=== PATIENT | male | born 1945 | race Hispanic/Latino ===

== ENCOUNTER 2019-03-31 12:21 | Day surgery (SDC) | payer MEDICARE ==
[2019-03-31 13:11] VITALS: BP 146/65; TEMP 98
== END 2019-03-31 13:12 | disposition home or self-care (01) ==
LOC: ONC/OP 12:21
PROVIDERS: ATTEND Internal Medicine Hematology & Oncology
DX: Z51.12 Encounter for antineoplastic immunotherapy (principal); C61 Malignant neoplasm of prostate; C79.51 Secondary malignant neoplasm of bone
CPT/HCPCS: 36415; 80053; 82248; 83615; 84100; 84550; 96372; J0897

== ENCOUNTER 2019-04-24 11:11 | Day surgery (SDC) | payer MEDICARE ==
[2019-04-24 13:06] VITALS: BP 167/76; TEMP 97.7
== END 2019-04-24 15:29 | disposition home or self-care (01) ==
LOC: ONC/OP 11:11
PROVIDERS: ATTEND Internal Medicine Hematology & Oncology
DX: Z51.12 Encounter for antineoplastic immunotherapy (principal); C61 Malignant neoplasm of prostate; C79.51 Secondary malignant neoplasm of bone
CPT/HCPCS: 80053; 82248; 83615; 84100; 84153; 84550; 96372; J0897

== ENCOUNTER 2019-06-05 15:24 | Day surgery (SDC) | payer MEDICARE ==
[2019-06-05 15:37] VITALS: BP 147/69; TEMP 97.8
== END 2019-06-05 15:38 | disposition home or self-care (01) ==
LOC: ONC/OP 15:24
PROVIDERS: ATTEND Internal Medicine Hematology & Oncology
DX: Z51.12 Encounter for antineoplastic immunotherapy (principal); C61 Malignant neoplasm of prostate; C79.51 Secondary malignant neoplasm of bone; I25.10 Atherosclerotic heart disease of native coronary artery without angina pectoris; E11.9 Type 2 diabetes mellitus without complications; I10 Essential (primary) hypertension; I69.328 Other speech and language deficits following cerebral infarction; Z79.4 Long term (current) use of insulin; Z79.82 Long term (current) use of aspirin; Z90.79 Acquired absence of other genital organ(s); Z95.1 Presence of aortocoronary bypass graft
CPT/HCPCS: 36415; 80053; 82248; 82728; 83540; 83550; 83615; 84100; 84153; 84550; 96365; 96372; J0897

== ENCOUNTER 2019-07-03 14:03 | Day surgery (SDC) | payer MEDICARE | END 2019-07-03 14:19 | disposition home or self-care (01) | LOC: ONC/OP 14:03 | PROVIDERS: ATTEND Internal Medicine Hematology & Oncology | DX: Z51.12 Encounter for antineoplastic immunotherapy (principal); C61 Malignant neoplasm of prostate; C79.51 Secondary malignant neoplasm of bone; D50.0 Iron deficiency anemia secondary to blood loss (chronic) | CPT/HCPCS: 36415; 80053; 82248; 83615; 84100; 84153; 84550; 96372; J0897 ==

== ENCOUNTER 2019-07-31 13:46 | Day surgery (SDC) | payer MEDICARE | END 2019-07-31 14:28 | disposition home or self-care (01) | LOC: ONC/OP 13:46 | PROVIDERS: ATTEND Internal Medicine Hematology & Oncology | DX: Z51.12 Encounter for antineoplastic immunotherapy (principal); C61 Malignant neoplasm of prostate; C79.51 Secondary malignant neoplasm of bone; D50.0 Iron deficiency anemia secondary to blood loss (chronic) | CPT/HCPCS: 36415; 80053; 82248; 82728; 83540; 83550; 83615; 84100; 84153; 84550; 96372; J0897 ==

== ENCOUNTER 2019-08-28 14:32 | Day surgery (SDC) | payer MEDICARE ==
[~2019-08-28 14:32] MED LIST: EPOETIN ALFA-EPBX (ESRD) 40,000 UNIT/ML VIAL SC SCH
== END 2019-08-28 17:16 | disposition home or self-care (01) ==
LOC: ONC/OP 14:32
PROVIDERS: ATTEND Internal Medicine Hematology & Oncology
DX: Z51.12 Encounter for antineoplastic immunotherapy (principal); C61 Malignant neoplasm of prostate; C79.51 Secondary malignant neoplasm of bone; D50.0 Iron deficiency anemia secondary to blood loss (chronic); N18.4 Chronic kidney disease, stage 4 (severe); D63.1 Anemia in chronic kidney disease
CPT/HCPCS: 36415; 80053; 82248; 83615; 84100; 84153; 84550; 96372; J0897; Q5105

== ENCOUNTER → 2019-09-11 | Day surgery (SDC) | payer MEDICARE ==
[~2019-09-11] MED LIST changes: +EPOETIN ALFA-EPBX (ESRD) 40,000 UNIT/ML VIAL ONE; -EPOETIN ALFA-EPBX (ESRD) 40,000 UNIT/ML VIAL SC SCH
== END ==
LOC: ONC/OP 13:37
PROVIDERS: ATTEND Internal Medicine Hematology & Oncology
DX: D50.0 Iron deficiency anemia secondary to blood loss (chronic) (principal); N18.4 Chronic kidney disease, stage 4 (severe); D63.1 Anemia in chronic kidney disease; C61 Malignant neoplasm of prostate; C79.51 Secondary malignant neoplasm of bone
CPT/HCPCS: 96372; Q5105

== ENCOUNTER 2019-09-25 10:24 | Day surgery (SDC) | payer MEDICARE ==
[~2019-09-25 10:24] MED LIST changes: -EPOETIN ALFA-EPBX (ESRD) 40,000 UNIT/ML VIAL ONE; +EPOETIN ALFA-EPBX (ESRD) 40,000 UNIT/ML VIAL SC SCH
[2019-09-25 10:34] VITALS: BP 184/84; TEMP 97.5
== END 2019-09-25 10:35 | disposition home or self-care (01) ==
LOC: ONC/OP 10:24
PROVIDERS: ATTEND Internal Medicine Hematology & Oncology
DX: Z51.12 Encounter for antineoplastic immunotherapy (principal); C61 Malignant neoplasm of prostate; C79.51 Secondary malignant neoplasm of bone; N18.4 Chronic kidney disease, stage 4 (severe); D63.1 Anemia in chronic kidney disease
CPT/HCPCS: 36415; 80053; 82248; 83615; 84100; 84153; 84550; 96372; J0897

== ENCOUNTER 2019-10-09 14:36 | Day surgery (SDC) | payer MEDICARE ==
[2019-10-09] MEDS ORDERED: EPOETIN ALFA-EPBX (ESRD) 40,000 UNIT/ML VIAL ONE (15:35)
[2019-10-09 15:37] VITALS: BP 154/80; TEMP 98.8
== END 2019-10-09 15:41 | disposition home or self-care (01) ==
LOC: ONC/OP 14:36
PROVIDERS: ATTEND Internal Medicine Hematology & Oncology
DX: D50.0 Iron deficiency anemia secondary to blood loss (chronic) (principal); N18.4 Chronic kidney disease, stage 4 (severe); D63.1 Anemia in chronic kidney disease; C61 Malignant neoplasm of prostate; C79.51 Secondary malignant neoplasm of bone
CPT/HCPCS: 96372; Q5105

== ENCOUNTER 2019-10-23 14:27 | Day surgery (SDC) | payer MEDICARE ==
[2019-10-23 14:54] VITALS: BP 155/68; TEMP 98.3
== END 2019-10-23 14:54 | disposition home or self-care (01) ==
LOC: ONC/OP 14:27
PROVIDERS: ATTEND Internal Medicine Hematology & Oncology
DX: C61 Malignant neoplasm of prostate (principal); C79.51 Secondary malignant neoplasm of bone; D63.1 Anemia in chronic kidney disease; N18.4 Chronic kidney disease, stage 4 (severe); D50.0 Iron deficiency anemia secondary to blood loss (chronic)
CPT/HCPCS: 36415; 80053; 82248; 83615; 84100; 84153; 84550; 96372; J0897

== ENCOUNTER → 2019-11-06 | Day surgery (SDC) | payer MEDICARE ==
[~2019-11-06] MED LIST changes: +EPOETIN ALFA-EPBX (ESRD) 4,000 UNIT/ML VIAL SC SCH
[2019-11-06 16:06] VITALS: BP 161/77; TEMP 98
== END ==
LOC: ONC/OP 14:00
PROVIDERS: ATTEND Internal Medicine Hematology & Oncology
DX: N18.4 Chronic kidney disease, stage 4 (severe) (principal); D63.1 Anemia in chronic kidney disease; D50.0 Iron deficiency anemia secondary to blood loss (chronic); C61 Malignant neoplasm of prostate; C79.51 Secondary malignant neoplasm of bone
CPT/HCPCS: 96372; Q5105

== ENCOUNTER 2019-11-20 14:04 | Day surgery (SDC) | payer MEDICARE ==
[~2019-11-20 14:04] MED LIST changes: -EPOETIN ALFA-EPBX (ESRD) 4,000 UNIT/ML VIAL SC SCH
[2019-11-20 15:54] VITALS: BP 163/77; TEMP 97.8
== END 2019-11-20 15:54 | disposition home or self-care (01) ==
LOC: ONC/OP 14:04
PROVIDERS: ATTEND Internal Medicine Hematology & Oncology
DX: Z51.12 Encounter for antineoplastic immunotherapy (principal); C61 Malignant neoplasm of prostate; C79.51 Secondary malignant neoplasm of bone; N18.4 Chronic kidney disease, stage 4 (severe); D63.1 Anemia in chronic kidney disease; D50.0 Iron deficiency anemia secondary to blood loss (chronic)
CPT/HCPCS: 36415; 80053; 82248; 83615; 84100; 84153; 84550; 96372; J0897

== ENCOUNTER 2019-12-18 14:39 | Day surgery (SDC) | payer MEDICARE ==
[2019-12-18] MEDS ORDERED: EPOETIN ALFA-EPBX (ESRD) 40,000 UNIT/ML VIAL ONE (14:54)
== END 2019-12-18 14:55 | disposition home or self-care (01) ==
LOC: ONC/OP 14:39
PROVIDERS: ATTEND Internal Medicine Hematology & Oncology
DX: N18.4 Chronic kidney disease, stage 4 (severe) (principal); D63.1 Anemia in chronic kidney disease; D50.0 Iron deficiency anemia secondary to blood loss (chronic); C61 Malignant neoplasm of prostate; C79.51 Secondary malignant neoplasm of bone
CPT/HCPCS: 36415; 80053; 82248; 83615; 84100; 84153; 84550; 96372; J0897; Q5105

== ENCOUNTER 2020-01-15 09:36 | Day surgery (SDC) | payer MEDICARE | END 2020-01-15 10:07 | disposition home or self-care (01) | LOC: ONC/OP 09:36 | PROVIDERS: ATTEND Internal Medicine Hematology & Oncology | DX: N18.4 Chronic kidney disease, stage 4 (severe) (principal); D63.1 Anemia in chronic kidney disease; D50.0 Iron deficiency anemia secondary to blood loss (chronic); C61 Malignant neoplasm of prostate; C79.51 Secondary malignant neoplasm of bone | CPT/HCPCS: 96372; J0897 ==

== ENCOUNTER 2020-03-11 09:26 | Day surgery (SDC) | payer MEDICARE | END 2020-03-11 09:50 | disposition home or self-care (01) | LOC: ONC/OP 09:26 | PROVIDERS: ATTEND Internal Medicine Hematology & Oncology | DX: N18.4 Chronic kidney disease, stage 4 (severe) (principal); D63.1 Anemia in chronic kidney disease; D50.0 Iron deficiency anemia secondary to blood loss (chronic); C61 Malignant neoplasm of prostate; C79.51 Secondary malignant neoplasm of bone | CPT/HCPCS: 36415; 80053; 82248; 83615; 84100; 84153; 84550; 96372; J0897 ==

== ENCOUNTER → 2020-03-25 | Day surgery (SDC) | payer MEDICARE ==
[~2020-03-25] MED LIST changes: +EPOETIN ALFA-EPBX (ESRD) 40,000 UNIT/ML VIAL ONE; -EPOETIN ALFA-EPBX (ESRD) 40,000 UNIT/ML VIAL SC SCH
[2020-03-25 09:44] VITALS: BP 190/88; TEMP 97.9
== END ==
LOC: ONC/OP 09:24
PROVIDERS: ATTEND Internal Medicine Hematology & Oncology
DX: N18.4 Chronic kidney disease, stage 4 (severe) (principal); D63.1 Anemia in chronic kidney disease; D50.0 Iron deficiency anemia secondary to blood loss (chronic); C61 Malignant neoplasm of prostate; C79.51 Secondary malignant neoplasm of bone
CPT/HCPCS: 96372; Q5105

== ENCOUNTER 2020-04-08 09:38 | Day surgery (SDC) | payer MEDICARE ==
[~2020-04-08 09:38] MED LIST changes: -EPOETIN ALFA-EPBX (ESRD) 40,000 UNIT/ML VIAL ONE; +EPOETIN ALFA-EPBX (ESRD) 40,000 UNIT/ML VIAL SC SCH
[2020-04-08 09:44] VITALS: BP 195/75
== END 2020-04-08 10:01 | disposition home or self-care (01) ==
LOC: ONC/OP 09:38
PROVIDERS: ATTEND Internal Medicine Hematology & Oncology
DX: N18.4 Chronic kidney disease, stage 4 (severe) (principal); D63.1 Anemia in chronic kidney disease; D50.0 Iron deficiency anemia secondary to blood loss (chronic); C61 Malignant neoplasm of prostate; C79.51 Secondary malignant neoplasm of bone
CPT/HCPCS: 36415; 80053; 82248; 83615; 84100; 84153; 84550; 96372; J0897; Q5105

== ENCOUNTER 2020-04-22 11:19 | Day surgery (SDC) | payer MEDICARE ==
[2020-04-22 11:23] VITALS: BP 193/80; TEMP 98.3
[2020-04-22] MEDS ORDERED: EPOETIN ALFA-EPBX (ESRD) 40,000 UNIT/ML VIAL SC SCH (11:45)
== END 2020-04-22 11:39 | disposition home or self-care (01) ==
LOC: ONC/OP 11:19
PROVIDERS: ATTEND Internal Medicine Hematology & Oncology
DX: N18.4 Chronic kidney disease, stage 4 (severe) (principal); D63.1 Anemia in chronic kidney disease; D50.0 Iron deficiency anemia secondary to blood loss (chronic); C61 Malignant neoplasm of prostate; C79.51 Secondary malignant neoplasm of bone
CPT/HCPCS: 96372

== ENCOUNTER 2020-04-23 06:38 | Outpatient (CLI) | payer MEDICARE, OTHER ==
[2020-04-23 14:02] LABS: Hemoglobin 11.8 g/dL (14.0-18.0); INR-International Normal Ratio 0.9; Mean Corpuscular HGB CONC 33.2 g/dL (32.0-36.0); Mean Corpuscular Hemoglobin 32.3 pg (27.0-31.0); Mean Corpuscular Volume 97.1 fL (78.0-98.0); Mean Platelet Volume 7.8 fL (7.4-10.4); Platelet Count 348 thou/uL (130-400); Prothrombin Time 12.7 sec (12.0-14.7); RBC Distribution Width 14.1 % (11.5-14.5); Red Blood Cell (RBC) Count 3.67 mill/uL (4.70-6.10); White Blood Cell (WBC) Count 5.3 thou/uL (4.8-10.8)
[2020-04-23 14:03] LABS: PTT 29.7 sec (22.9-36.1)
[2020-04-23 15:01] LABS: Anion Gap 20 mmol/L (10-20); BUN (Urea Nitrogen) 57 mg/dL (8.4-25.7); Calc. Creatinine Clearance 0 mL/min (70-130); Calcium 7.7 mg/dL (7.8-10.44); Carbon Dioxide 15 mmol/L (23-31); Chloride 108 mmol/L (98-107); Estimated GFR-MDRD 15; Glucose 240 mg/dL (83-110); Potassium 5.4 mmol/L (3.5-5.1); Sodium 138 mmol/L (136-145)
[2020-04-24 11:59] LABS: SARS-CoV-2 MS2 Positive; SARS-CoV-2 N Gene Negative; SARS-CoV-2 S Gene Negative; SARS-CoV-2 by NAA Not Detected (NotDetected); SARS-CoV-2 orf1ab Negative
== END 2020-04-23 06:39 | disposition home or self-care (01) ==
LOC: LABBT 06:38
PROVIDERS: ATTEND Urology
DX: Z01.812 Encounter for preprocedural laboratory examination (principal); Z20.828 Contact with and (suspected) exposure to other viral communicable diseases; N47.1 Phimosis
CPT/HCPCS: 80048; 85027; 85610; 85730; U0003; 87635

== ENCOUNTER 2020-04-28 06:00 | Day surgery (SDC) | payer MEDICARE ==
[2020-04-27 08:47] VITALS: BMI 27.3
[2020-04-28] MEDS ORDERED: Bupivacaine 0.25% HCL 30 ML VIAL ONE (06:32)
[2020-04-28] MEDS ORDERED: Bacitracin Zinc Ointment 30 gm TUBE ONE (06:32)
[2020-04-28] MEDS ORDERED: CEFAZOLIN 1 GM VIAL ONE (06:40)
[2020-04-28 07:05] LABS: Anion Gap 17 mmol/L (10-20); BUN (Urea Nitrogen) 50 mg/dL (8.4-25.7); Calc. Creatinine Clearance 22 mL/min (70-130); Calcium 8.3 mg/dL (7.8-10.44); Carbon Dioxide 17 mmol/L (23-31); Chloride 110 mmol/L (98-107); Estimated GFR-MDRD 18; Glucose 177 mg/dL (83-110); Potassium 4.5 mmol/L (3.5-5.1); Sodium 139 mmol/L (136-145)
[2020-04-28] MEDS ORDERED: Fentanyl 100 MCG/2 ML VIAL ONE (07:35)
[2020-04-28] MEDS ORDERED: Potassium Chloride 20 MEQ/100 ML PREMIX BAG ONE (07:35)
[2020-04-28] MEDS ORDERED: Propofol 500 MG/50 ML VIAL ONE (07:35)
[2020-04-28] MEDS ORDERED: HYDROcodone/Acetaminophen 5/325 mg Tablet ONE (09:15)
--- NOTE | 2020-04-28 09:43 | OP ---
DATE OF PROCEDURE: 04/28/2020 PREOPERATIVE DIAGNOSIS: Phimosis. POSTOPERATIVE DIAGNOSIS: Phimosis. PROCEDURE PERFORMED: Dorsal slit. ANESTHESIA: Sedation with local. ESTIMATED BLOOD LOSS: Minimal. FINDINGS: He had very tight phimosis. He had no lesions. DESCRIPTION OF PROCEDURE: After obtaining written and verbal consent from the patient, after receiving 1 g of Ancef because of renal insufficiency, he was taken to the operating suite, placed in a supine position on the treatment table. PlexiPulses were placed on his lower extremities and turned on. He was given some IV sedation. He was then sterilely prepped and draped. The midline of the dorsal foreskin was infiltrated with 0.25% Marcaine without epinephrine and a penile block was placed 5 mL total for the block and 5 mL at the foreskin. We then went ahead and passed a straight hemostat across the dorsal foreskin and crushed it and then divided this cross line with a pair of heavy scissors. We then re-prepped the inner foreskin and glans and changed gloves. We then controlled hemostasis with a Bovie with a needle tip. We thoroughly irrigated out the incision and then we closed the skin edges at the dorsal slit site with interrupted 3-0 chromics, a number of them U-stitches, some of them single stitches. Triple antibiotic ointment was liberally placed on the glans as well as on the incision. A loose 4x4 placed around it and fluffs and wet panties. We did place a Henderson catheter prior to placing the dressing. This was placed because he does have some urinary incontinence after his radical prostatectomy and radiation therapy years ago for his prostate cancer. We will try to keep the urine off for this for a few days by using a Hendersno catheter. He was awakened and taken by stretcher back to day stay. Job ID: [id number]
[2020-04-28] MEDS ORDERED: hydrALAZINE 20 MG/ML VIAL ONE (10:09)
== END 2020-04-28 11:00 | disposition home or self-care (01) ==
LOC: SDC 06:00
PROVIDERS: ATTEND Urology
PROC: 0VNTXZZ Release Prepuce, External Approach (ICD-10-PCS; principal; 2020-04-28)
DX: N47.1 Phimosis (principal); I10 Essential (primary) hypertension; I25.10 Atherosclerotic heart disease of native coronary artery without angina pectoris; E11.9 Type 2 diabetes mellitus without complications; Z79.4 Long term (current) use of insulin; Z79.899 Other long term (current) drug therapy; Z86.73 Personal history of transient ischemic attack (TIA), and cerebral infarction without residual deficits; Z95.1 Presence of aortocoronary bypass graft
CPT/HCPCS: 36415; 36416; 80048; 93005; 93010; J0360; J0690; J2704; J3010; J3480; S0020

== ENCOUNTER 2020-05-06 09:43 | Day surgery (SDC) | payer MEDICARE ==
[2020-05-06 09:56] VITALS: BP 185/77; TEMP 97.7
== END 2020-05-06 13:04 | disposition home or self-care (01) ==
LOC: ONC/OP 09:43
PROVIDERS: ATTEND Internal Medicine Hematology & Oncology
DX: N18.4 Chronic kidney disease, stage 4 (severe) (principal); D63.1 Anemia in chronic kidney disease; D50.0 Iron deficiency anemia secondary to blood loss (chronic); C61 Malignant neoplasm of prostate; C79.51 Secondary malignant neoplasm of bone
CPT/HCPCS: 36415; 80053; 82248; 83615; 84100; 84153; 84550; 96372; J0897; Q5105

== ENCOUNTER 2020-06-03 11:27 | Day surgery (SDC) | payer MEDICARE ==
[2020-06-03 11:36] VITALS: BP 142/67
== END 2020-06-03 11:38 | disposition home or self-care (01) ==
LOC: ONC/OP 11:27
PROVIDERS: ATTEND Internal Medicine Hematology & Oncology
DX: N18.4 Chronic kidney disease, stage 4 (severe) (principal); D63.1 Anemia in chronic kidney disease; D50.0 Iron deficiency anemia secondary to blood loss (chronic); C61 Malignant neoplasm of prostate; C79.51 Secondary malignant neoplasm of bone
CPT/HCPCS: 36415; 80053; 82248; 83615; 84100; 84550; 96372; J0897; Q5105

== ENCOUNTER 2020-06-17 12:12 | Day surgery (SDC) | payer MEDICARE ==
[2020-06-17] MEDS ORDERED: EPOETIN ALFA-EPBX (ESRD) 40,000 UNIT/ML VIAL ONE (12:15)
[2020-06-17 12:20] VITALS: BP 176/77; TEMP 98.3
== END 2020-06-17 12:33 | disposition home or self-care (01) ==
LOC: ONC/OP 12:12
PROVIDERS: ATTEND Internal Medicine Hematology & Oncology
DX: N18.4 Chronic kidney disease, stage 4 (severe) (principal); D63.1 Anemia in chronic kidney disease; D50.0 Iron deficiency anemia secondary to blood loss (chronic); C61 Malignant neoplasm of prostate; C79.51 Secondary malignant neoplasm of bone
CPT/HCPCS: 96372; Q5105

== ENCOUNTER 2020-07-01 12:09 | Day surgery (SDC) | payer MEDICARE ==
[2020-07-01 13:10] VITALS: BP 141/68
[2020-07-01 13:21] LABS: #Eosinphils 0.4 thou/uL (0.0-0.7); #Lymphocytes 0.9 thou/uL (1.20-3.40); #Monocytes 0.5 thou/uL (0.11-0.59); #Neutrophils 4.3 thou/uL (1.40-6.50); %Basophils 0.2 % (0.0-1.0); %Eosinophils 6.1 % (0.0-10.0); %Lymphocytes 14.5 % (21.0-51.0); %Monocytes 7.6 % (0.0-10.0); %Neutrophils 71.7 % (42.0-75.0); Hemoglobin 11.5 g/dL (14.0-18.0); Mean Corpuscular HGB CONC 32.8 g/dL (32.0-36.0); Mean Corpuscular Hemoglobin 31.6 pg (27.0-31.0); Mean Corpuscular Volume 96.2 fL (78.0-98.0); Mean Platelet Volume 7.5 fL (7.4-10.4); Platelet Count 298 thou/uL (130-400); RBC Distribution Width 15.2 % (11.5-14.5); Red Blood Cell (RBC) Count 3.64 mill/uL (4.70-6.10)
[2020-07-01 13:37] LABS: ALT (SGPT) Less than 7 U/L (8-55); AST (SGOT) 11 U/L (5-34); Albumin 3.8 g/dL (3.4-4.8); Alkaline Phosphatase 98 U/L (40-110); Anion Gap 18 mmol/L (10-20); BUN (Urea Nitrogen) 52 mg/dL (8.4-25.7); Bilirubin, Total 0.4 mg/dL (0.2-1.2); Calc. Creatinine Clearance 0 mL/min (70-130); Calcium 7.3 mg/dL (7.8-10.44); Carbon Dioxide 17 mmol/L (23-31); Chloride 109 mmol/L (98-107); Globulin 3.2 g/dL (2.4-3.5); Glucose 237 mg/dL (83-110); Potassium 4.8 mmol/L (3.5-5.1); Sodium 139 mmol/L (136-145); Uric Acid 7.6 mg/dL (3.5-7.2)
== END 2020-07-01 15:31 | disposition home or self-care (01) ==
LOC: ONC/OP 12:09
PROVIDERS: ATTEND Internal Medicine Hematology & Oncology
DX: C61 Malignant neoplasm of prostate (principal); C79.51 Secondary malignant neoplasm of bone; D50.0 Iron deficiency anemia secondary to blood loss (chronic); N18.4 Chronic kidney disease, stage 4 (severe); D63.1 Anemia in chronic kidney disease
CPT/HCPCS: 80053; 83615; 84153; 84550; 85025; 96372; J0897; Q5105

== ENCOUNTER 2020-07-29 10:47 | Day surgery (SDC) | payer MEDICARE ==
[2020-07-29 10:53] VITALS: BP 167/74; TEMP 97.4
== END 2020-07-29 12:42 | disposition home or self-care (01) ==
LOC: ONC/OP 10:47
PROVIDERS: ATTEND Internal Medicine Hematology & Oncology
DX: Z51.12 Encounter for antineoplastic immunotherapy (principal); C61 Malignant neoplasm of prostate; C79.51 Secondary malignant neoplasm of bone; D50.0 Iron deficiency anemia secondary to blood loss (chronic); N18.4 Chronic kidney disease, stage 4 (severe); D63.1 Anemia in chronic kidney disease
CPT/HCPCS: 80053; 82248; 83615; 84100; 84153; 84550; 96375; 96401; J0897; Q5105

== ENCOUNTER 2020-08-12 10:48 | Day surgery (SDC) | payer MEDICARE ==
[2020-08-12] MEDS ORDERED: EPOETIN ALFA-EPBX (ESRD) 40,000 UNIT/ML VIAL ONE (10:51)
[2020-08-12 11:34] VITALS: BP 135/68
== END 2020-08-12 11:34 | disposition home or self-care (01) ==
LOC: ONC/OP 10:48
PROVIDERS: ATTEND Internal Medicine Hematology & Oncology
DX: N18.4 Chronic kidney disease, stage 4 (severe) (principal); D63.1 Anemia in chronic kidney disease; D50.0 Iron deficiency anemia secondary to blood loss (chronic); C61 Malignant neoplasm of prostate; C79.51 Secondary malignant neoplasm of bone
CPT/HCPCS: 96372; Q5105

== ENCOUNTER 2020-08-26 11:07 | Day surgery (SDC) | payer MEDICARE ==
[2020-08-26 11:12] VITALS: BP 150/68
== END 2020-08-26 11:13 | disposition home or self-care (01) ==
LOC: ONC/OP 11:07
PROVIDERS: ATTEND Internal Medicine Hematology & Oncology
DX: Z51.12 Encounter for antineoplastic immunotherapy (principal); C61 Malignant neoplasm of prostate; C79.51 Secondary malignant neoplasm of bone; N18.4 Chronic kidney disease, stage 4 (severe); D63.1 Anemia in chronic kidney disease; D50.0 Iron deficiency anemia secondary to blood loss (chronic)
CPT/HCPCS: 36415; 80053; 82248; 83615; 84100; 84153; 84550; 96372; J0897; Q5105

== ENCOUNTER 2020-09-09 10:30 | Day surgery (SDC) | payer MEDICARE ==
[2020-09-09] MEDS ORDERED: EPOETIN ALFA-EPBX (ESRD) 40,000 UNIT/ML VIAL ONE (10:35)
[2020-09-09] MEDS ORDERED: EPOETIN ALFA-EPBX (ESRD) 40,000 UNIT/ML VIAL SC SCH (11:00)
[2020-09-09 11:23] VITALS: BP 218/93; TEMP 98.8
== END 2020-09-09 11:28 | disposition home or self-care (01) ==
LOC: ONC/OP 10:30
PROVIDERS: ATTEND Internal Medicine Hematology & Oncology
DX: N18.4 Chronic kidney disease, stage 4 (severe) (principal); D63.1 Anemia in chronic kidney disease; D50.0 Iron deficiency anemia secondary to blood loss (chronic); C61 Malignant neoplasm of prostate; C79.51 Secondary malignant neoplasm of bone
CPT/HCPCS: Q5105

== ENCOUNTER 2020-09-23 11:33 | Day surgery (SDC) | payer MEDICARE ==
[2020-09-23 12:10] VITALS: BP 157/74; TEMP 98.2
== END 2020-09-23 12:11 | disposition home or self-care (01) ==
LOC: ONC/OP 11:33
PROVIDERS: ATTEND Internal Medicine Hematology & Oncology
DX: N18.4 Chronic kidney disease, stage 4 (severe) (principal); D63.1 Anemia in chronic kidney disease; C61 Malignant neoplasm of prostate; C79.51 Secondary malignant neoplasm of bone; D50.0 Iron deficiency anemia secondary to blood loss (chronic)
CPT/HCPCS: 36415; 80053; 82248; 83615; 84100; 84153; 84550; 96372; J0897; Q5105

== ENCOUNTER 2020-10-07 10:39 | Day surgery (SDC) | payer MEDICARE ==
[2020-10-07] MEDS ORDERED: EPOETIN ALFA-EPBX (ESRD) 40,000 UNIT/ML VIAL ONE (10:43)
[2020-10-07] MEDS ORDERED: EPOETIN ALFA-EPBX (ESRD) 40,000 UNIT/ML VIAL SC SCH (10:45)
[2020-10-07 10:56] VITALS: BP 138/72; TEMP 97.4
== END 2020-10-07 10:57 | disposition home or self-care (01) ==
LOC: ONC/OP 10:39
PROVIDERS: ATTEND Internal Medicine Hematology & Oncology
DX: N18.4 Chronic kidney disease, stage 4 (severe) (principal); D63.1 Anemia in chronic kidney disease; D50.0 Iron deficiency anemia secondary to blood loss (chronic); C61 Malignant neoplasm of prostate; C79.51 Secondary malignant neoplasm of bone
CPT/HCPCS: 96372; Q5105

== ENCOUNTER 2020-10-21 10:45 | Day surgery (SDC) | payer MEDICARE ==
[2020-10-21 11:46] VITALS: BP 133/63; TEMP 97.8
== END 2020-10-21 11:50 | disposition home or self-care (01) ==
LOC: ONC/OP 10:45
PROVIDERS: ATTEND Internal Medicine Hematology & Oncology
DX: Z51.12 Encounter for antineoplastic immunotherapy (principal); C61 Malignant neoplasm of prostate; C79.51 Secondary malignant neoplasm of bone; N18.4 Chronic kidney disease, stage 4 (severe); D63.1 Anemia in chronic kidney disease; D50.0 Iron deficiency anemia secondary to blood loss (chronic)
CPT/HCPCS: 96372; J0897; Q5105

== ENCOUNTER 2020-11-04 11:07 | Day surgery (SDC) | payer MEDICARE ==
[2020-11-04] MEDS ORDERED: EPOETIN ALFA-EPBX (ESRD) 40,000 UNIT/ML VIAL ONE (11:10)
[2020-11-04 11:15] VITALS: BP 148/95; TEMP 98.6
== END 2020-11-04 11:16 | disposition home or self-care (01) ==
LOC: ONC/OP 11:07
PROVIDERS: ATTEND Internal Medicine Hematology & Oncology
DX: N18.4 Chronic kidney disease, stage 4 (severe) (principal); D63.1 Anemia in chronic kidney disease; D50.0 Iron deficiency anemia secondary to blood loss (chronic); C61 Malignant neoplasm of prostate; C79.51 Secondary malignant neoplasm of bone
CPT/HCPCS: 96372; Q5105

== ENCOUNTER 2020-11-18 11:56 | Day surgery (SDC) | payer MEDICARE ==
[2020-11-18 12:15] VITALS: BP 155/70
== END 2020-11-18 12:17 | disposition home or self-care (01) ==
LOC: ONC/OP 11:56
PROVIDERS: ATTEND Internal Medicine Hematology & Oncology
DX: Z51.12 Encounter for antineoplastic immunotherapy (principal); C61 Malignant neoplasm of prostate; C79.51 Secondary malignant neoplasm of bone; N18.4 Chronic kidney disease, stage 4 (severe); D63.1 Anemia in chronic kidney disease; D50.0 Iron deficiency anemia secondary to blood loss (chronic)
CPT/HCPCS: 36415; 80053; 82248; 83615; 84100; 84153; 84550; 96372; J0897; Q5105

== ENCOUNTER 2020-12-02 10:49 | Day surgery (SDC) | payer MEDICARE ==
[2020-12-02] MEDS ORDERED: EPOETIN ALFA-EPBX (ESRD) 40,000 UNIT/ML VIAL SC SCH (11:00)
[2020-12-02 11:02] VITALS: BP 185/81
== END 2020-12-02 11:03 | disposition home or self-care (01) ==
LOC: ONC/OP 10:49
PROVIDERS: ATTEND Internal Medicine Hematology & Oncology
DX: N18.4 Chronic kidney disease, stage 4 (severe) (principal); D63.1 Anemia in chronic kidney disease; C61 Malignant neoplasm of prostate; C79.51 Secondary malignant neoplasm of bone; D50.0 Iron deficiency anemia secondary to blood loss (chronic)
CPT/HCPCS: 96372; Q5105

== ENCOUNTER 2020-12-16 11:06 | Day surgery (SDC) | payer MEDICARE ==
[2020-12-16 11:28] VITALS: BP 181/79; TEMP 97.9
== END 2020-12-16 11:28 | disposition home or self-care (01) ==
LOC: ONC/OP 11:06
PROVIDERS: ATTEND Internal Medicine Hematology & Oncology
DX: Z51.12 Encounter for antineoplastic immunotherapy (principal); C61 Malignant neoplasm of prostate; C79.51 Secondary malignant neoplasm of bone; N18.4 Chronic kidney disease, stage 4 (severe); D63.1 Anemia in chronic kidney disease; D50.0 Iron deficiency anemia secondary to blood loss (chronic)
CPT/HCPCS: 80053; 82248; 83615; 84100; 84153; 84550; 96372; J0897; Q5105

== ENCOUNTER 2020-12-30 11:16 | Day surgery (SDC) | payer MEDICARE ==
[2020-12-30] MEDS ORDERED: EPOETIN ALFA-EPBX (ESRD) 40,000 UNIT/ML VIAL ONE (11:39)
== END 2020-12-30 11:49 | disposition home or self-care (01) ==
LOC: ONC/OP 11:16
PROVIDERS: ATTEND Internal Medicine Hematology & Oncology
DX: N18.4 Chronic kidney disease, stage 4 (severe) (principal); D63.1 Anemia in chronic kidney disease; D50.0 Iron deficiency anemia secondary to blood loss (chronic); C61 Malignant neoplasm of prostate; C79.51 Secondary malignant neoplasm of bone
CPT/HCPCS: 96372; Q5105

== ENCOUNTER 2021-02-24 11:50 | Day surgery (SDC) | payer MEDICARE ==
[2021-02-24 12:09] VITALS: BP 156/74; TEMP 98.1
== END 2021-02-24 12:20 | disposition home or self-care (01) ==
LOC: ONC/OP 11:50
PROVIDERS: ATTEND Internal Medicine Hematology & Oncology
DX: N18.4 Chronic kidney disease, stage 4 (severe) (principal); D63.1 Anemia in chronic kidney disease; C61 Malignant neoplasm of prostate; C79.51 Secondary malignant neoplasm of bone; D50.0 Iron deficiency anemia secondary to blood loss (chronic)
CPT/HCPCS: 36415; 80053; 82248; 83615; 84100; 84153; 84550; 96372; J0897; Q5105

== ENCOUNTER 2021-03-24 11:57 | Day surgery (SDC) | payer MEDICARE ==
[2021-03-24 12:49] VITALS: BP 154/72
== END 2021-03-24 12:50 | disposition home or self-care (01) ==
LOC: ONC/OP 11:57
PROVIDERS: ATTEND Internal Medicine Hematology & Oncology
DX: Z51.12 Encounter for antineoplastic immunotherapy (principal); C61 Malignant neoplasm of prostate; C79.51 Secondary malignant neoplasm of bone; D50.0 Iron deficiency anemia secondary to blood loss (chronic); N18.4 Chronic kidney disease, stage 4 (severe); D63.1 Anemia in chronic kidney disease
CPT/HCPCS: 96372; J0897; Q5105

== ENCOUNTER 2021-04-07 11:09 | Day surgery (SDC) | payer MEDICARE ==
[2021-04-07] MEDS ORDERED: EPOETIN ALFA-EPBX (ESRD) 40,000 UNIT/ML VIAL ONE (11:16)
[2021-04-07 11:19] VITALS: BP 160/78
[2021-04-07] MEDS ORDERED: EPOETIN ALFA-EPBX (NON-ESRD) 40,000 UNIT/ML VIAL SC SCH (12:45)
== END 2021-04-07 11:27 | disposition home or self-care (01) ==
LOC: ONC/OP 11:09
PROVIDERS: ATTEND Internal Medicine Hematology & Oncology
DX: N18.4 Chronic kidney disease, stage 4 (severe) (principal); D63.1 Anemia in chronic kidney disease; D50.0 Iron deficiency anemia secondary to blood loss (chronic); C61 Malignant neoplasm of prostate; C79.51 Secondary malignant neoplasm of bone
CPT/HCPCS: 96372; Q5105

== ENCOUNTER 2021-04-21 11:29 | Day surgery (SDC) | payer MEDICARE ==
[2021-04-21 11:59] VITALS: BP 168/74; TEMP 98
== END 2021-04-21 12:03 | disposition home or self-care (01) ==
LOC: ONC/OP 11:29
PROVIDERS: ATTEND Internal Medicine Hematology & Oncology
DX: Z51.12 Encounter for antineoplastic immunotherapy (principal); C61 Malignant neoplasm of prostate; C79.51 Secondary malignant neoplasm of bone; D50.0 Iron deficiency anemia secondary to blood loss (chronic); N18.4 Chronic kidney disease, stage 4 (severe); D63.1 Anemia in chronic kidney disease
CPT/HCPCS: 36415; 80053; 82248; 83615; 84100; 84153; 84550; 96372; 96401; Q5105

== ENCOUNTER 2021-05-19 10:28 | Day surgery (SDC) | payer MEDICARE ==
[~2021-05-19 10:28] MED LIST changes: -EPOETIN ALFA-EPBX (ESRD) 40,000 UNIT/ML VIAL SC SCH; +EPOETIN ALFA-EPBX (NON-ESRD) 40,000 UNIT/ML VIAL SC SCH
[2021-05-19 10:50] VITALS: BP 123/61; TEMP 97.7
== END 2021-05-19 10:52 | disposition home or self-care (01) ==
LOC: ONC/OP 10:28
PROVIDERS: ATTEND Internal Medicine Hematology & Oncology
DX: Z51.12 Encounter for antineoplastic immunotherapy (principal); C61 Malignant neoplasm of prostate; C79.51 Secondary malignant neoplasm of bone; N18.4 Chronic kidney disease, stage 4 (severe); D63.1 Anemia in chronic kidney disease; D50.0 Iron deficiency anemia secondary to blood loss (chronic)
CPT/HCPCS: 36415; 80053; 82248; 83615; 84100; 84153; 84550; 96375; 96401; J0897; Q5106

== ENCOUNTER 2021-06-02 10:14 | Day surgery (SDC) | payer MEDICARE ==
[2021-06-02 12:01] VITALS: BP 199/91
== END 2021-06-02 12:24 | disposition home or self-care (01) ==
LOC: ONC/OP 10:14
PROVIDERS: ATTEND Internal Medicine Hematology & Oncology
DX: N18.4 Chronic kidney disease, stage 4 (severe) (principal); D63.1 Anemia in chronic kidney disease; C61 Malignant neoplasm of prostate; C79.51 Secondary malignant neoplasm of bone; D50.0 Iron deficiency anemia secondary to blood loss (chronic)
CPT/HCPCS: 99211; G0463

== ENCOUNTER 2021-06-16 11:01 | Day surgery (SDC) | payer MEDICARE ==
[2021-06-16] MEDS ORDERED: EPOETIN ALFA-EPBX (NON-ESRD) 40,000 UNIT/ML VIAL ONE (11:09)
[2021-06-16 11:22] VITALS: BP 172/79; TEMP 97.9
== END 2021-06-16 11:23 | disposition home or self-care (01) ==
LOC: ONC/OP 11:01
PROVIDERS: ATTEND Internal Medicine Hematology & Oncology
DX: Z51.12 Encounter for antineoplastic immunotherapy (principal); C61 Malignant neoplasm of prostate; C79.51 Secondary malignant neoplasm of bone; N18.4 Chronic kidney disease, stage 4 (severe); D63.1 Anemia in chronic kidney disease; D50.0 Iron deficiency anemia secondary to blood loss (chronic)
CPT/HCPCS: 96372; J0897; Q5106